=== PATIENT | female | born 1975 | race Caucasian/White ===

== ENCOUNTER 2021-03-26 08:04 | Outpatient (CLI) | payer OTHER | END 2021-03-26 08:05 | disposition home or self-care (01) | LOC: CSHMAMMO 08:04 | PROVIDERS: ATTEND Obstetrics & Gynecology | DX: Z12.31 Encounter for screening mammogram for malignant neoplasm of breast (principal); Z98.82 Breast implant status | CPT/HCPCS: 77063; 77067 ==

== ENCOUNTER 2021-05-29 07:46 | Outpatient (CLI) | payer OTHER ==
[2021-05-29] MEDS ORDERED: EPINEPHrine 1 MG/ML AMP ONE (08:21)
[2021-05-29] MEDS ORDERED: Lidocaine 1% PF 5 ML VIAL ONE (08:21)
[2021-05-29] MEDS ORDERED: Sodium Bicarbonate 2.5 MEQ/5 ML VIAL ONE (08:21)
== END 2021-05-29 07:47 | disposition home or self-care (01) ==
LOC: CSHRAD 07:46
PROVIDERS: ATTEND Orthopaedic Surgery
DX: M25.511 Pain in right shoulder (principal); M75.51 Bursitis of right shoulder
CPT/HCPCS: 23350; J0171

== ENCOUNTER 2022-12-07 13:05 | Outpatient (CLI) | payer OTHER | END 2022-12-07 13:06 | disposition home or self-care (01) | LOC: CSHMAMMO 13:05 | PROVIDERS: ATTEND Obstetrics & Gynecology | DX: Z12.31 Encounter for screening mammogram for malignant neoplasm of breast (principal); Z98.82 Breast implant status | CPT/HCPCS: 77063; 77067 ==

== ENCOUNTER 2024-03-28 13:52 | Outpatient (CLI) | payer OTHER | END 2024-03-28 13:53 | disposition home or self-care (01) | LOC: CSHMAMMO 13:52 | PROVIDERS: ATTEND Obstetrics & Gynecology | DX: Z12.31 Encounter for screening mammogram for malignant neoplasm of breast (principal); Z78.0 Asymptomatic menopausal state; M85.88 Other specified disorders of bone density and structure, other site; Z79.52 Long term (current) use of systemic steroids; Z98.82 Breast implant status; Z98.890 Other specified postprocedural states | CPT/HCPCS: 77063; 77067; 77080 ==